=== PATIENT | male | born 1935 | race Caucasian/White ===

== ENCOUNTER 2024-07-05 10:39 | Day surgery (SDC) | payer MEDICARE ==
[~2024-07-05] VITALS: Ht 180.3 cm; Wt 88.2 kg
[2024-07-05] VITALS (13 sets, daily range): BP systolic 128–177; BP diastolic 72–102; PULSE 60–81; TEMP 97.3–98.3
[~2024-07-05 10:39] MED LIST: CEPHALEXIN500 M1 PO; ELIQUIS 5MG PO; FLOMAX 0.40.4 MG/CAP PO; LASIX 40MG TABL40 MG PO; VANTIN 200200 MG/TAB PO; ZESTRIL 5MG5 MG PO
[2024-07-05] MEDS ORDERED: LR 1,000 ML IV SCH (12:00)
[2024-07-05] MEDS ORDERED: fentaNYL 50 MCG/ML 2 ML VIAL ONE (12:57)
[2024-07-05] MEDS ORDERED: Ondansetron 4 MG/2 ML VIAL ONE (12:59)
[2024-07-05] MEDS ORDERED: NS 10 ML IV ONE (12:59)
[2024-07-05] MEDS ORDERED: dexAMETHasone 10 MG/ML VIAL ONE (12:59)
[2024-07-05] MEDS ORDERED: Glycopyrrolate 0.2 MG/ML 1 ML VIAL ONE (12:59)
[2024-07-05] MEDS ORDERED: Magnes Hydrox (MOM) 80 MG/ML 30 ML CUP PO PRN (13:15)
[2024-07-05] MEDS ORDERED: Morphine 4 MG/ML VIAL IV PRN (13:15)
[2024-07-05] MEDS ORDERED: Hyoscyamine 0.125 MG Sublingual TAB SL PRN (13:15)
[2024-07-05] MEDS ORDERED: 1/2 NS & 20 mEq KCl 1,000 ML IV SCH (13:15)
[2024-07-05] MEDS ORDERED: Ondansetron 4 MG/2 ML VIAL IV PRN ×2 (13:15→14:00)
[2024-07-05] MEDS ORDERED: NS Irrig Soln 3000 ML SOLN IR PRN (13:15)
[2024-07-05] MEDS ORDERED: Acetaminophen 325 MG TAB PO PRN (13:15)
[2024-07-05] MEDS ORDERED: Rocuronium 50 MG/5 ML Multi-Dose VIAL ONE (13:30)
[2024-07-05] MEDS ORDERED: Succinylcholine PF 200 MG/10 ML SYRINGE IV ONE (13:30)
[2024-07-05] MEDS ORDERED: HYDROmorphone 1 MG/1 ML SYRINGE [PACU/SDC ONLY] IV PRN (14:00)
[2024-07-05] MEDS ORDERED: hydrALAZINE 20 MG/ML 1 ML VIAL IV PRN (14:00)
[2024-07-05] MEDS ORDERED: fentaNYL 50 MCG/ML 1 ML SYRINGE/VIAL [PACU/SDC ONLY] IV PRN (14:00)
--- NOTE | 2024-07-05 15:32 | NUR ---
PATIENT ARRIVED TO SURGICAL FLOOR AT APPROX 1500. PATIENT IS AWAKE, ALERT, AND ORIENTED. VSS. POST OP VS INITIATED. PATIENT HAS A SILICONE 22 TONGAN 3-WAY OJEDA, FOAM TAPED TENSION IN PLACE. CBI RUNNING SLOW, CLEAR, YELLOW URINE NOTED. BLE NOTED. PATIENT DENIES PAIN OR DISCOMFORT AT THIS TIME. SON AT BEDSIDE. CALL LIGHT WITHIN REACH.
[2024-07-05] MEDS ORDERED: Docusate Sodium 100 MG CAP PO SCH (21:00)
[2024-07-05] MEDS ORDERED: Melatonin 3 MG TAB PO PRN (21:00)
[2024-07-06] VITALS (7 sets, daily range): BP systolic 112–168; BP diastolic 51–89; PULSE 68–81; TEMP 97.4–97.8
--- NOTE | 2024-07-06 03:50 | NUR ---
patient lying in bed, alert and oriented x4. denies chest pain and shortness of breath. ontiveros in place with CBI running, urine a light shin/pink lemonade coloring. pt refused colace at this time, ambulates with steady gait. call light within reach. pt has no further needs, questions or concerns.
--- NOTE | 2024-07-06 09:36 | NUR ---
PATIENT ALERT AND ORIENTED X4. VSS. PATIENT HERE FOR TURP. CBI RUNNING SLOW. IV TO RIGHT FA INT AND FLUSHES WELL. PATIENT DENIES ANY PAIN. ORDER TO PRIME AND PULL AND 6 CUP REGIMEN. AM MEDS ADMINISTERED. NO FURTHER NEEDS. CALL LIGHT IN REACH.
--- NOTE | 2024-07-06 09:45 | NUR ---
OJEDA PRIME AND PULLED AND 6 CUP REGIMEN STARTED. PATIENT VOIDED ONCE. PATIENT ENCOURAGED TO INCREASE PO INTAKE AND AMBULATE.
--- NOTE | 2024-07-06 10:56 | NUR ---
scale assembly set up worker met with patient to discuss discharge planning. Patient lives in [place] by himself. Patient's point of contacts is Padma (yossi) P# [phone] or his son, Edwin, P# [phone]. PCP is Dr. Steen, Pharmacy is [facility]. No issues affording medications at this time but was having issues with Eliquis previously. Patient stated he gets his Eliquis through a [employer] company that ships to his home. Insurance is Medicare [employer]. Patient reports DPOA-HC is Padma but uncertain if there is a secondary. DME is [facility]. Patient stated he uses the [facility] for stability when out and about. Patient reports to be independent with ADLS. Patient reports no issues with transportation for appointments. Patient's son came into patient's room at end of coversation. SW discussed home health services. Patient stated he was hoping he would not need home health for PT/OT/nursing but accepted the Medicare.gov information for home health just in case. Patient was interested in private pay home care services for cleaning. SW provided the private pay list of agencies along with their costs and the [facility] list of private pay services. SW pointed out the life [facility] information which patient is also interested. Patient has no further questions or concerns at this time. Discharge plan: Home
--- NOTE | 2024-07-06 13:52 | NUR ---
BLADDER SCAN REVEALS 450 AND 475ML IN PATIENT'S BLADDER. CALLED ROSALIE FREITAS TO REPORT. NO NEW ORDERS. WILL ENCOURAGE PATIENT TO INCREASE PO AND AMBULATE.
--- NOTE | 2024-07-06 16:45 | NUR ---
DISCHARGE INSTRUCTIONS PROVIDED. PATIENT EDUCATION GIVEN. IV DC'D. VOID TRIAL FAILED, 18F COUDE OJEDA INSERTED. PATIENT EDUCATED ON HOME CARE FOR OJEDA. FAX SENT TO [facility] FOR A F/U APPT. MEDICATIONS REVIEWED. FOLLOW UP APPOINTMENT REVIEWED. PATIENT DENIES ANY QUESTIONS OR CONCERNS. PATIENT ESCORTED OUT VIA WHEELCHAIR.
== END 2024-07-06 16:48 | disposition home or self-care (01) ==
LOC: SDCO 10:39 → SURG 15:17 → SDCO 07-06 16:48
DX: N40.1 Benign prostatic hyperplasia with lower urinary tract symptoms (principal); R35.1 Nocturia; R33.9 Retention of urine, unspecified; R39.12 Poor urinary stream; R39.14 Feeling of incomplete bladder emptying; N13.30 Unspecified hydronephrosis; N17.9 Acute kidney failure, unspecified; I10 Essential (primary) hypertension; Z87.891 Personal history of nicotine dependence; Z79.01 Long term (current) use of anticoagulants; Z86.718 Personal history of other venous thrombosis and embolism; Z91.040 Latex allergy status; Z79.899 Other long term (current) drug therapy
CPT/HCPCS: OP; J0690; J1100; J2405; J2704; J3010; J7120

== ENCOUNTER 2024-07-06 19:24 | Emergency (ER) | payer MEDICARE ==
[~2024-07-06] VITALS: Ht 180.3 cm; Wt 83.2 kg
[2024-07-06 19:33] VITALS: TEMP 98.7
[2024-07-06 21:40] VITALS: BP 125/79; PULSE 80
== END 2024-07-06 21:40 | disposition home or self-care (01) ==
LOC: COL.ER 19:24
DX: N40.1 Benign prostatic hyperplasia with lower urinary tract symptoms (principal); R33.8 Other retention of urine; R31.9 Hematuria, unspecified; Z86.718 Personal history of other venous thrombosis and embolism

== ENCOUNTER 2024-07-11 02:13 | Emergency (ER) | payer MEDICARE ==
[~2024-07-11] VITALS: Ht 180.3 cm; Wt 84.1 kg
[2024-07-11 02:21] VITALS: TEMP 98
[2024-07-11 03:03] LABS: COLLECTION METHOD IN
[2024-07-11 03:12] LABS: PH 5.5 (5.0-8.5); URINE APPEARANCE CLOUDY (CLEAR/HAZY); URINE BLOOD 3+ (NEGATIVE); URINE COLOR YELLOW (YELLOW); URINE GLUCOSE NEGATIVE (NEGATIVE); URINE KETONE NEGATIVE (NEGATIVE); URINE NITRATE POSITIVE (NEGATIVE); URINE PROTEIN(semi-quant) 2+ (NEGATIVE)
[2024-07-11] MEDS ORDERED: Cephalexin 500 MG CAP PO ONE (03:30)
[2024-07-11 03:48] VITALS: BP 156/90; PULSE 88
== END 2024-07-11 03:48 | disposition home or self-care (01) ==
LOC: COL.ER 02:13
PROVIDERS: Emergency Medicine
DX: N39.0 Urinary tract infection, site not specified (principal)
CPT/HCPCS: A4314

== ENCOUNTER 2024-08-01 03:06 | Emergency (ER) | payer MEDICARE ==
[~2024-08-01] VITALS: Ht 180.3 cm; Wt 83.2 kg
[2024-08-01 03:09] VITALS: BP 178/89; PULSE 97; TEMP 98.7
[2024-08-01 03:54] LABS: COLLECTION METHOD IN
[2024-08-01 04:03] LABS: URINE APPEARANCE CLEAR (CLEAR/HAZY); URINE BLOOD 3+ (NEGATIVE); URINE COLOR YELLOW (YELLOW); URINE GLUCOSE NEGATIVE (NEGATIVE); URINE KETONE 1+ (NEGATIVE); URINE NITRATE NEGATIVE (NEGATIVE); URINE PROTEIN(semi-quant) 1+ (NEGATIVE); URINE UROBILINOGEN 0.2 E.U/dL (0.2-1.0)
== END 2024-08-01 04:37 | disposition home or self-care (01) ==
LOC: COL.ER 03:06
PROVIDERS: Emergency Medicine
DX: R33.9 Retention of urine, unspecified (principal)